=== PATIENT | female | born 1995 | race Caucasian/White ===

== ENCOUNTER 2020-11-26 14:36 | Emergency (ER) | payer SELFPAY ==
--- NOTE | ~2020-11-26 | XR_ITS ---
EXAMINATION: XR chest 1V portable DATE: 11/26/2020 16:29 INDICATION: Drug overdose. Seizure like activity. TECHNIQUE: A single frontal view of the chest was obtained. COMPARISON: None. FINDINGS: The chest demonstrates clear lungs without pneumonia, pleural effusion, or pneumothorax. Th e heart size is normal. IMPRESSION: 1. No acute cardiopulmonary disease. Reviewed, dictated and finalized at location B.
[2020-11-26 15:00] VITALS: BP 91/61; PULSE 79; RESP 13; O2SAT 100
[2020-11-26 15:01] VITALS: BP 108/56; PULSE 60; RESP 15; O2SAT 98
--- NOTE | 2020-11-26 15:03 | ED.GENADULT ---
HPI - General Adult General Chief complaint: Unspecified Stated complaint: SEIZURE VS DRUG USE Time Seen by Provider: 11/26/20 15:03 Source: patient Mode of arrival: ambulatory Limitations: no limitations History of Present Illness HPI narrative: Patient is a 25-year-old female who presents via EMS for evaluation of altered mental status. Patient presented to her first day of work at a [employer] and was found to be confused and agitated, thus staff at the hotel called EMS who transported to our facility for evaluation. Patient states she is a previous fentanyl user who has been sober 7 months, but used a bar of Xanax 2 days ago which she is worried may have been laced with fentanyl. Patient states that she has had some jaw contraction on the right side with mild jaw pain since that time. She is currently alert and oriented to person and place. She denies any headache, chest pain or other symptoms. Patient is acutely intoxicated. She denies homicidal or suicidal ideation. Related Data Home Medications Medication Instructions Recorded Confirmed No Home Medications 11/26/20 11/26/20 Allergies Allergy/AdvReac Type Severity Reaction Status Date / Time No Known Allergies Allergy Verified 11/26/20 14:58 Review of Systems Review of Systems: Narrative: CONSTITUTIONAL: Denies fever CARDIOVASCULAR: Denies chest pain RESPIRATORY: Denies cough or dyspnea. GASTROINTESTINAL: Denies abdominal pain SKIN: Denies rash MUSCULOSKELETAL: Denies back pain NEUROLOGIC: Denies headache [facility] Social History Social History (Updated 11/26/20 @ 15:49 by Mary Delgadillo MD) Smoking status: Current every day smoker Tobacco type: e-cigarettes/vaping Alcohol intake: never Substance use: current Substance use type: former substance user, marijuana and sedatives Gender identity (if verbalized by the patient): Female Exam Narrative: Exam Narrative: GENERAL: Awake, alert, conversant, intoxicated HEAD: Normocephalic, atraumatic. EYES: PERRLA and EOMI. ENT: Nares clear, no rhinorrhea or epistaxis. Mucous membranes dry. No trismus. NECK: Supple. CHEST: No respiratory distress, breathing even and non labored HEART: Regular rate, sinus rhythm ABDOMEN:Non distended, non tender EXTREMITIES: Normal range of motion. No edema. SKIN: Warm, dry, no rash. NEURO:No focal deficits. Alert and oriented x3 Course Vital Signs Vital signs: Vital Signs Pulse Rate 79 11/26/20 15:00 Respiratory Rate 13 11/26/20 15:00 Blood Pressure 91/61 L 11/26/20 15:00 Pulse Oximetry 100 11/26/20 15:00 Pulse Rate 69 11/26/20 18:57 Respiratory Rate 19 11/26/20 18:57 Blood Pressure 104/66 11/26/20 18:57 Pulse Oximetry 100 11/26/20 18:57 Medical Decision Making MDM Narrative Medical decision making narrative: Patient presented for evaluation of altered mental status. At the time of assessment, patient is awake and alert to person, place and to time. She can identify she is in the hospital. She reports being acutely intoxicated with Xanax. She also reports marijuana use. She denies alcohol use. Denies complaints of any pain. Patient is somewhat dehydrated appearing. IV access obtained and labs are drawn. Laboratory results are reassuring. No leukocytosis. No lactic acidosis. No evidence of pneumonia. Possible urinary tract infection although patient lacks symptoms of this currently. Patient was given IV fluids and felt much improved. Patient initially was hypotensive but this did improve with fluids. Her mentation proved. She was ambulatory with a narrow base, steady gait. No evidence of head trauma. Likely symptoms are secondary to polysubstance abuse, benzodiazepine use. No evidence of sepsis or septic shock. No other acute pathology found tonight. Patient then awakened and eloped from emergency department. I was not able to write for her antibiotics prior to her eloping. Differential Diagnosis Different
--- NOTE | 2020-11-26 15:43 | ECG_ITS ---
Measurements Intervals [place] Rate: 51 P: 45 MO: 110 QRS: 38 QRSD: 98 T: 48 QT: 458 QTc: 425 Interpretive Statements SINUS BRADYCARDIA WITH SHORT MO INTERVAL LOW QRS VOLTAGE IN PRECORDIAL LEADS BASELINE ARTIFACT- I, II, V1-V2 BORDERLINE ECG Electronically Signed On 11-26-2020 16:21:19 CDT by Jason Gutierrez D.O.
[2020-11-26 15:55] VITALS: PULSE 67
[2020-11-26 16:11] LABS: Basophils Percent Auto 0.4 % (0.2-1.2); Hemoglobin 13.8 g/dL (12.0-15.0); Immature Granulocyte Absolute 0.06 K/mm3 (0.00-0.031); Immature Granulocyte Percent A 0.8 % (0-0.5); Lymphocytes Absolute Auto 1.89 K/mm3 (0.9-3.2); Lymphocytes Percent Auto 24.9 % (18.3-44.2); Mean Corpuscular HGB Conc 33.7 g/dl (32-36); Mean Corpuscular Hemoglobin 29.2 pg (26-34); Mean Corpuscular Volume 86.7 fl (80-100); Mean Platelet Volume 9.1 fl (7.4-10.4); Monocytes Absolute Auto 0.4 K/mm3 (0.1-0.6); Monocytes Percent Auto 4.6 % (2.6-8.5); Neutrophils Absolute Auto 5.3 K/mm3 (1.3-6.7); Neutrophils Percent Auto 69.3 % (45.5-73.1); Platelet Count Result 278 k/mm3 (150-375); Red Blood Count 4.73 M/mm3 (4.2-5.4); Red Cell Distribution Width 14.3 % (11.5-14.5); White Blood Count 7.6 K/mm3 (4.5-10.0)
[2020-11-26] MEDS: SODIUM CHLORIDE 0.9% IV 1,000 ML 999 ML IV CONT (16:18)
[2020-11-26 16:20] LABS: Ethanol < 10 mg/dL (<10)
[2020-11-26 16:21] LABS: Alanine Aminotransferase 91 U/L (4-35); Albumin Level 4.9 g/dL (3.5-5.1); Alkaline Phosphatase 61 U/L (38-126); Anion Gap 11 mmol/L (8-16); Aspartate Amino Transferase 67 U/L (14-36); Bilirubin,Total 0.5 mg/dL (0.2-1.3); Blood Urea Nitrogen 10 mg/dL (7-17); Calcium 9.9 mg/dL (8.4-10.2); Carbon Dioxide 24 mmol/L (22-30); Chloride 107 mmol/L (98-107); Estimated CRCL calculation 85 ml/min; Estimated Glomerular Filt Rate > 60; Glucose 94 mg/dL (65-105); Potassium 3.6 mmol/L (3.4-5.0); Sodium 142 mmol/L (137-145)
[2020-11-26 16:22] LABS: Glucose Point of Care 92 mg/dl (65-105)
[2020-11-26 16:22] LABS: Lactic Acid Reflex 1.6 mmol/L (0.7-2.1)
[2020-11-26 16:29] LABS: Add Urine Microscopic? YES; Appearance Urine Cloudy (Clear); Bacteria Urine Trace /hpf; Bilirubin Urine Negative (Negative); Blood Urine 3+ (Negative); Color Urine Amber (Yellow); Glucose Urine UA Negative (Negative); Ketones Urine Trace mg/dL (Negative); Leukocyte Esterase Ur 1+ LEU/UL (Negative); Mucus Urine Moderate /lpf; Nitrate Urine Negative (Negative); Protein Urine 3+ mg/dL (Negative); Specific Grav Ur 1.026 (1.001-1.035); Squamous Epithelial Cell Urine Many /hpf (Few); WBC Urine 21-30 /hpf
[2020-11-26 16:43] VITALS: BP 100/63; PULSE 60; RESP 18; O2SAT 98
[2020-11-26 16:51] LABS: Barbiturate Screen Urine Negative (Negative); Benzodiazepines Screen Urine Positive (Negative)
[2020-11-26 16:56] LABS: Cannabinoid Screen Urine Positive (Negative); Cocaine Screen Urine Negative (Negative); Methadone Screen Urine Negative (Negative); Phencyclidine Screen Urine Negative (Negative)
[2020-11-26 17:17] LABS: Amphetamine Screen Urine Positive (Negative)
[2020-11-26] MEDS: THIAMINE HCL INJ 100 MG, FOLIC ACID INJ 1 MG, MULTIVITAMINS-12 INJ VIAL 1 5 ML, MULTIVI... IV CONT (17:40)
[2020-11-26 18:57] VITALS: BP 104/66; PULSE 69; RESP 19; O2SAT 100
[2020-11-26 19:13] LABS: Opiate Screen Urine Negative (Negative)
--- NOTE | 2020-11-26 20:20 | PC.NURSE ---
pct notified charge that pt is not in room and banana bag was running with iv attached to end of tubing.
== END 2020-11-26 21:47 | disposition left against medical advice (07) ==
PROVIDERS: Emergency Provider Emergency Medicine
DX: F19.10 Other psychoactive substance abuse, uncomplicated (principal); F17.290 Nicotine dependence, other tobacco product, uncomplicated; R00.1 Bradycardia, unspecified
CPT/HCPCS: 36415; 71045; 80053; 80307; 81001; 81025; 82948; 83605; 85025; 87040; 87077; 87086; 87088; 87186; 93005; 96361; 96365; 96366; 99284; J3411; J3475; J7030; J7121

== ENCOUNTER 2020-12-25 14:08 | Emergency (ER) | payer OTHER, SELFPAY ==
--- NOTE | ~2020-12-25 | XR_ITS ---
EXAMINATION: XR chest 2V DATE: 12/25/2020 14:59 INDICATION: Acute chest pain. TECHNIQUE: Frontal and lateral views of the chest were obtained. COMPARISON: Chest single view 11/26/2020 FINDINGS: The chest demonstrates clear lungs without pneumonia, pleural effusion, or pneumothorax. Th e heart size is normal. IMPRESSION: 1. No acute cardiopulmonary disease. Reviewed, dictated and finalized at location A.
[2020-12-25 14:32] VITALS: BP 109/66; PULSE 73; RESP 17; TEMP 35.4; O2SAT 100
--- NOTE | 2020-12-25 14:36 | ECG_ITS ---
Measurements Intervals [place] Rate: 64 P: 56 SD: 108 QRS: 61 QRSD: 86 T: 56 QT: 435 QTc: 451 Interpretive Statements SINUS RHYTHM WITH SHORT SD INTERVAL BORDERLINE ECG Electronically Signed On 12-25-2020 14:55:31 CDT by Jason Gutierrez D.O.
--- NOTE | 2020-12-25 17:23 | ED.GENADULT ---
HPI - General Adult General Chief complaint: Seizure <Ariella De La Cruz MD - Last Filed: 12/25/20 19:35> Stated complaint: seizure <Ariella De La Cruz MD - Last Filed: 12/25/20 19:35> Time Seen by Provider: 12/25/20 17:15 <Ariella De La Cruz MD - Last Filed: 12/25/20 19:35> Source: patient <Ariella De La Cruz MD - Last Filed: 12/25/20 19:35> Limitations: no limitations <Ariella De La Cruz MD - Last Filed: 12/25/20 19:35> History of Present Illness HPI narrative: Patient is 25 years old white female presented to the ED with feeling lightheadedness, dizziness and hot feeling and restlessness. Patient been outdoors for 2 hours, outdoor temperature is 97 Fahrenheit, very humid. Patient denies any headache, chest pain, shortness of breath, abdominal pain or back pain. Patient denies drug use or abuse. <Ariella De La Cruz MD - Last Filed: 12/25/20 19:35> Related Data Allergies/adverse reactions: Allergies Allergy/AdvReac Type Severity Reaction Status Date / Time No Known Allergies Allergy Verified 12/25/20 18:50 <Ariella De La Cruz MD - Last Filed: 12/25/20 19:35> Review of Systems Review of Systems: Narrative: CONSTITUTIONAL: Denies fever, chills, or sweats. EYES: Denies visual changes, redness, or discharge. ENT: Denies rhinorrhea, congestion, sore throat, or otalgia. CARDIOVASCULAR: Denies chest pain, palpitations, or edema. RESPIRATORY: Denies cough or dyspnea. GASTROINTESTINAL: Denies abdominal pain, nausea, vomiting, or diarrhea. GENITOURINARY: Denies dysuria or hematuria. SKIN: Denies rash or itching. MUSCULOSKELETAL: Denies back pain, joint pain, or myalgia. NEUROLOGIC: Denies headache, numbness, or weakness. PSYCHIATRIC: Denies anxiety or depression. <Ariella De La Cruz MD - Last Filed: 12/25/20 19:35> Exam Narrative: Exam Narrative: General appearance: Well-developed, well-nourished, restless Skin: Normal color, diaphoretic, warm skin Head: Normocephalic, nontraumatic Eyes: Clear conjunctiva ENT: Oropharynx normal, ears normal, nose normal Neck: Supple, nontender Chest and respiratory: Airway patent, no respiratory distress, no accessory muscle use Heart: Regular rate/rhythm Abdomen: Soft, nontender, no organomegaly, quiet bowel sounds Vascular: Normal peripheral pulses, normal capillary refill. Musculoskeletal: Normal range of motion, nontender back Neurologic: Alert and oriented ?3, RED HAT OPEN STACK ADMINISTRATOR is normal as tested, no gross motor deficit <Ariella De La Cruz MD - Last Filed: 12/25/20 19:35> Course Course Emergency Course: Improving <Ariella De La Cruz MD - Last Filed: 12/25/20 19:35> After I received sign-out she eloped with IV in place. PD notified. Meth on drug screen did not result. Likely too high. <Sher Jimenez MD - Last Filed: 12/25/20 21:53> Reevaluation(s) Reevaluation #1: Hard to get IV access, another nurse trying to get 1, Patient care turned over to Dr. Alonzo at shift change, IV fluid, UA and urine drug screen, disposition. Patient been resting quietly in the emergency room without any issues or problems. <Ariella De La Cruz MD - Last Filed: 12/25/20 19:35> Date: 12/25/20 <Ariella De La Cruz MD - Last Filed: 12/25/20 19:35> Time: 19:34 <Ariella De La Cruz MD - Last Filed: 12/25/20 19:35> Vital Signs Vital signs: Vital Signs Temperature 35.4 C L 12/25/20 14:32 Pulse Rate 73 12/25/20 14:32 Respiratory Rate 17 12/25/20 14:32 Blood Pressure 109/66 12/25/20 14:32 Pulse Oximetry 100 12/25/20 14:32 Temperature 35.4 C L 12/25/20 14:32 Pulse Rate 69 12/25/20 19:34 Respiratory Rate 15 12/25/20 19:34 Blood Pressure 108/73 12/25/20 19:34 Pulse Oximetry 97
[2020-12-25 17:39] LABS: Basophils Percent Auto 0.4 % (0.2-1.2); Eosinophils Percent Auto 0.1 % (0-4.4); Hematocrit 37.8 % (37.0-47.0); Hemoglobin 12.5 g/dL (12.0-15.0); Immature Granulocyte Absolute 0.03 K/mm3 (0.00-0.031); Immature Granulocyte Percent A 0.4 % (0-0.5); Lymphocytes Absolute Auto 1.56 K/mm3 (0.9-3.2); Lymphocytes Percent Auto 20.6 % (18.3-44.2); Mean Corpuscular HGB Conc 33.1 g/dl (32-36); Mean Corpuscular Hemoglobin 28.1 pg (26-34); Mean Corpuscular Volume 84.9 fl (80-100); Monocytes Absolute Auto 0.3 K/mm3 (0.1-0.6); Neutrophils Absolute Auto 5.7 K/mm3 (1.3-6.7); Neutrophils Percent Auto 74.5 % (45.5-73.1); Platelet Count Result 369 k/mm3 (150-375); Red Blood Count 4.45 M/mm3 (4.2-5.4); Red Cell Distribution Width 12.9 % (11.5-14.5); White Blood Count 7.6 K/mm3 (4.5-10.0)
[2020-12-25 17:49] LABS: Anion Gap 9 mmol/L (8-16); Blood Urea Nitrogen 10 mg/dL (7-17); Calcium 9.6 mg/dL (8.4-10.2); Carbon Dioxide 25 mmol/L (22-30); Chloride 106 mmol/L (98-107); Estimated CRCL calculation 119 ml/min; Estimated Glomerular Filt Rate > 60; Glucose 97 mg/dL (65-105); Potassium 4.1 mmol/L (3.4-5.0); Sodium 140 mmol/L (137-145)
[2020-12-25 18:00] LABS: Troponin I < 0.012 ng/mL (0.000-0.034)
[2020-12-25 18:45] VITALS: BP 108/73; PULSE 73; PULSE 98; RESP 16
[2020-12-25 19:34] VITALS: BP 108/73; PULSE 69; RESP 15; O2SAT 97
[2020-12-25] MEDS: SODIUM CHLORIDE 0.9% IV 1,000 ML 999 ML IV CONT (19:46)
[2020-12-25 20:27] LABS: Add Urine Microscopic? YES; Appearance Urine Cloudy (Clear); Bacteria Urine Trace /hpf; Bilirubin Urine Negative (Negative); Blood Urine 3+ (Negative); Color Urine Yellow (Yellow); Glucose Urine UA Negative (Negative); Ketones Urine Negative (Negative); Leukocyte Esterase Ur Trace LEU/UL (Negative); Mucus Urine Few /lpf; Nitrate Urine Negative (Negative); Protein Urine 2+ mg/dL (Negative); RBC Urine >75 /hpf (0-2); Squamous Epithelial Cell Urine Moderate /hpf (Few)
[2020-12-25 20:38] LABS: Barbiturate Screen Urine Negative (Negative); Benzodiazepines Screen Urine Positive (Negative)
[2020-12-25 20:49] LABS: Cannabinoid Screen Urine Positive (Negative); Cocaine Screen Urine Negative (Negative); Methadone Screen Urine Negative (Negative); Opiate Screen Urine Negative (Negative); Phencyclidine Screen Urine Negative (Negative)
--- NOTE | 2020-12-25 21:54 | PC.NURSE ---
Called [facility] to inform them of pt elopement with IV in place.
--- NOTE | 2020-12-25 21:59 | PC.NURSE ---
Found IV in trash can. Called [place] police and updated them.
--- NOTE | 2020-12-25 21:59 | PC.NURSE ---
Pt IV removed by herself and pt left ED> IV found in trashcan.
== END 2020-12-25 22:00 | disposition left against medical advice (07) ==
PROVIDERS: Emergency Provider Emergency Medicine
DX: T67.5XXA Heat exhaustion, unspecified, initial encounter (principal); R42 Dizziness and giddiness
CPT/HCPCS: 36415; 71046; 80048; 80307; 81001; 81025; 84484; 85025; 93005; 96360; 99284; J7030

== ENCOUNTER 2024-05-30 08:05 | Emergency (ER) | payer OTHER, SELFPAY ==
[2024-05-30 08:10] VITALS: BP 115/91; PULSE 78; RESP 16; O2SAT 99
--- NOTE | 2024-05-30 08:28 | ED.GENADULT ---
HPI - General Adult General Chief complaint: Nausea/Vomiting/Diarrhea Stated complaint: vaginal bleeding pregant Time Seen by Provider: 05/30/24 08:07 History of Present Illness HPI narrative: Patient is a 28-year-old female who is a at 13 weeks in gestation who presents ER with vaginal bleeding and lower abdominal cramping. Began this morning after waking up. She has had intermittent bleeding throughout her . Her OB is Dr. Hills. She reports she blood through her pants 3 times today. No urinary symptoms. No alleviating factors. She is having nausea. Related Data Allergies Allergy/AdvReac Type Severity Reaction Status Date / Time No Known Allergies Allergy Verified 05/30/24 08:15 Review of Systems Review of Systems: All systems reviewed & are unremarkable except as noted in HPI and below Constitutional: Constitutional: Reports no additional constitutional complaints Cardiovascular: Cardiovascular: Reports no additional cardiovascular complaints Respiratory: Respiratory: Reports no additional respiratory complaints Gastrointestinal: Gastrointestinal: Reports abdominal pain, Denies nausea and Denies vomiting Genitourinary: Genitourinary: Reports abnormal vaginal bleeding, Denies nocturia, Denies dysuria, Reports pelvic pain and Denies vaginal discharge PMFSH Past Medical History Medical History (Updated 05/30/24 @ 13:21 by Troy Thomas MD) Polysubstance abuse Surgical History Surgical History (Updated 05/30/24 @ 09:19 by Troy Thomas MD) No pertinent past surgical history Social History Social History Smoking status: Current every day smoker Tobacco type: e-cigarettes/vaping Alcohol intake: never Substance use: current Substance use type: former substance user, marijuana and sedatives Gender identity (if verbalized by the patient): Female Exam Narrative: GENERAL: Well-appearing, well-nourished, and in no acute distress. HEAD: Normocephalic, atraumatic. ENT: Mucous membranes moist. CHEST: Clear to auscultation. No respiratory distress. HEART: Regular rate and rhythm. Normal peripheral pulses. ABDOMEN: Soft, suprapubic discomfort, nondistended. : Retroverted uterus, mild-mod dark blood, no hemorrhage or blood products. EXTREMITIES: Normal range of motion. No edema. SKIN: Warm, dry, no rash. NEURO: Alert and oriented x3. PSYCH: Normal mood and affect. Course Course Emergency Course: 1049: Called to restroom. Patient passed fetus. No movement. Time of 1045. Will contact OB to discuss retained placenta. US unavailable today. 1121: Discussed with OB, they would recommend observation for pain control and delivery of placenta. Patient then delivered placenta in the ER. Patient will be monitored for bleeding. packet performed on fetus and sent to pathology. 1319: Patient is still having cramping but is markedly decreased in only 3/10 at its most intense. Her bleeding is decreased as well. Feels comfortable with discharge home. Will contact OB tomorrow to schedule follow-up ultrasound early in the week. Vital Signs Vital signs: Vital Signs Pulse Rate 78 05/30/24 08:10 Respiratory Rate 16 05/30/24 08:10 Blood Pressure 115/91 H 05/30/24 08:10 Pulse Oximetry 99 05/30/24 08:10 Oxygen Delivery Room Air 05/30/24 08:10 Temperature 96.8 F L 05/30/24 08:45 Pulse Rate 62 05/30/24 11:15 Respiratory Rate 16 05/30/24 11:15 Blood Pressure 108/77 05/30/24 11:15 Pulse Oximetry 100 05/30/24 11:15 Oxygen Delivery Room Air 05/30/24 08:10 Medical Decision Making Vital Signs Vital Signs: Vital Signs Pulse Rate 78 05/30/24 08:10 Respiratory Rate 16 05/30/24 08:10 Blood Pressure 115/91 H 05/30/24 08:10 Pulse Oximetry 99 05/30/24 08:10 Oxygen Delivery Room Air 05/30/24 08:10 Temperature 96.8 F L 05/30/24 08:45 Pulse Rate 62 05/30/24 11:15 Respiratory Rate 16 05/30/24 11:15 Blood Pressure 108/77 05/30/24 11:15 Pulse Oximetry 100 05/30/24 11:15 Oxygen Delivery Room Air 05/30/24 08:10 Lab Data 05/30/24 09:11 05/30/24 09:11 Labs: Lab Results 05/30/24 Range/Units 09:11 WBC 16.9 H (4.5-10.0) K/mm3 RBC 4.35 (4.2-5.4) M/mm3 Hgb 13.4 (12.0-15.0) g/dL Hct 38.2 (37.0-47.0) % MCV 87.8 (80-100) fl MCH 30.8 (26-34) pg MCHC 35.1 (32-36) g/dl RDW 13.2 (11.5-14.5) % Plt Count 297 (150-375) k/mm3 MPV 9.3 (7.4-10.4) fl Immature Gran % (Auto) 0.5 (0-0.5) % Neut % (Auto) 84.7 H (45.5-73.1) % Lymph % (Auto) 10.5 L (18.3-44.2) % [place] % (Auto) 3.8 (2.6-8.5) % Eos % (Auto) 0.3 (0-4.4) % Baso % (Auto) 0.2 (0.2-1.2) % Lymph # (Auto) 1.78 (0.9-3.2) K/mm3 [place] # (Auto) 0.7 H (0.1-0.6) K/mm3 Eos # (Auto) 0.1 (0-0.3) K/mm3 Baso # (Auto) 0.0 (0.0-0.1) K/mm3 Abs Immat Gran (auto) 0.09 H (0.00-0.031) K/mm3 Absolute Neuts (auto) 14.3 H (1.3-6.7) K/mm3 Absolute Nucleated RBC 0.000 (0.0-0.012) K/mm3 Nucleated RBC % 0.0 (0.0-0.2) % PT 14.7 (11.1-14.7) Seconds INR 1.1 APTT 28.5 (22.3-36.8) Seconds Sodium 137 (137-145) mmol/L Potassium 3.7 (3.4-5.0) mmol/L Chloride 106 (98-107) mmol/L Carbon Dioxide 18 L (22-30) mmol/L Anion Gap 13 H (4-12) mmol/L BUN 10 (7-17) mg/dL Creatinine 0.60 L (0.7-1.0) mg/dL Estim Creat Clear Calc 135 ml/min Estimated GFR > 60 (59 - ) Glucose 134 H (65-110) mg/dL Calcium 9.5 (8.4-10.2) mg/dL Total Bilirubin 0.6 (0.2-1.3) mg/dL AST 40 H (14-36) U/L ALT 60 H (6-35) U/L Alkaline Phosphatase 68 (38-126) U/L Total Protein 9.0 H (6.3-8.2) g/dL Albumin 4.6 (3.5-5.1) g/dL Beta HCG, Quant 71526.00 mIU/ML Blood Type A Positive Antibody Screen Negative Screen TNP Doses of RhIg Required 0 Discharge Plan Discharge Clinical Impression: Miscarriage at 8 to 28 weeks gestation Patient Disposition: Home, Self-Care Condition: Stable Instructions: Miscarriage (ED) Additional Instructions: Return ER if you have worsening abdominal pain, you lose consciousness, you have increased vaginal bleeding, or you have additional concerns. Follow-up with your OB. Prescriptions: New naproxen 375 mg tablet 375 mg PO BID Qty: 14 0RF hydrocodone-acetaminophen 5-325 mg tablet 1 tablet PO Q6H PRN (Reason: pain) Qty: 10 0RF ondansetron 4 mg tablet,disintegrating 4 mg PO Q6H PRN (Reason: nausea and vomiting) Qty: 10 0RF No Action nitrofurantoin monohyd/m-cryst [Macrobid] 100 mg capsule 100 mg PO Q12H 5 Days Qty: 10 0RF Rx Instructions: must administer with a meal/food Follow-up/Referrals: Silvio Hills MD [Physician] - 3 Days UNKNOWN,DOCTOR [Primary Care Provider] -
--- NOTE | 2024-05-30 08:40 | PC.NURSE ---
This RN attempted peripheral IV x2 with no success. Vanita RN to bedside to attempt IV access.
[2024-05-30 08:45] VITALS: TEMP 36
--- NOTE | 2024-05-30 08:45 | PC.NURSE ---
KAYCEE Waldron also unsuccessful at peripheral access. Vascular access to bedside for line and labs.
[2024-05-30 09:12] VITALS: BP 125/70; PULSE 49; RESP 16; O2SAT 100
[2024-05-30] MEDS: MORPHINE SULFATE (*CRX) 4 MG/ML INJ IV PUSH ×2 (09:21→11:39)
[2024-05-30] MEDS: ONDANSETRON INJ 4 MG/2 ML VIAL IV PUSH ×2 (09:21→11:38)
--- NOTE | 2024-05-30 09:21 | ECG_ITS ---
Test Date: 2024-05-30 09:31:23 Measurements Intervals [place] Rate: 49 P: 53 LA: 139 QRS: 25 QRSD: 103 T: 48 QT: 477 QTc: 432 Interpretive Statements SINUS BRADYCARDIA BASELINE WANDER- II, III, AVR, AVL, AVF, V1-V2 ABNORMAL ECG No previous ECG available for comparison Electronically Signed On 05-30-2024 11:50:53 TUMBLER MACHINE OPERATOR HELPER by Jason Gutierrez D.O.
[2024-05-30 09:25] LABS: Basophils Percent Auto 0.2 % (0.2-1.2); Eosinophils Absolute Auto 0.1 K/mm3 (0-0.3); Eosinophils Percent Auto 0.3 % (0-4.4); Hematocrit 38.2 % (37.0-47.0); Hemoglobin 13.4 g/dL (12.0-15.0); Immature Granulocyte Absolute 0.09 K/mm3 (0.00-0.031); Immature Granulocyte Percent A 0.5 % (0-0.5); Lymphocytes Absolute Auto 1.78 K/mm3 (0.9-3.2); Lymphocytes Percent Auto 10.5 % (18.3-44.2); Mean Corpuscular HGB Conc 35.1 g/dl (32-36); Mean Corpuscular Hemoglobin 30.8 pg (26-34); Mean Corpuscular Volume 87.8 fl (80-100); Mean Platelet Volume 9.3 fl (7.4-10.4); Monocytes Absolute Auto 0.7 K/mm3 (0.1-0.6); Monocytes Percent Auto 3.8 % (2.6-8.5); Neutrophils Absolute Auto 14.3 K/mm3 (1.3-6.7); Neutrophils Percent Auto 84.7 % (45.5-73.1); Platelet Count Result 297 k/mm3 (150-375); Red Blood Count 4.35 M/mm3 (4.2-5.4); Red Cell Distribution Width 13.2 % (11.5-14.5); White Blood Count 16.9 K/mm3 (4.5-10.0)
--- NOTE | 2024-05-30 09:35 | PC.NURSE ---
Sinus bradycardia on ag service manager. EKG protocoled and given to MD Thomas.
[2024-05-30 09:38] LABS: INR 1.1; Prothrombin Time 14.7 Seconds (11.1-14.7)
[2024-05-30 09:39] LABS: Partial Thromboplastin Time 28.5 Seconds (22.3-36.8)
--- NOTE | 2024-05-30 09:40 | PC.NURSE ---
MD Thomas at bedside performing pelvic exam and abdominal ultrasound with this RN present.
[2024-05-30 10:10] LABS: Alanine Aminotransferase 60 U/L (6-35); Albumin Level 4.6 g/dL (3.5-5.1); Alkaline Phosphatase 68 U/L (38-126); Anion Gap 13 mmol/L (4-12); Aspartate Amino Transferase 40 U/L (14-36); Bilirubin,Total 0.6 mg/dL (0.2-1.3); Blood Urea Nitrogen 10 mg/dL (7-17); Calcium 9.5 mg/dL (8.4-10.2); Carbon Dioxide 18 mmol/L (22-30); Chloride 106 mmol/L (98-107); Estimated CRCL calculation 135 ml/min; Estimated Glomerular Filt Rate > 60; Glucose 134 mg/dL (65-110); Potassium 3.7 mmol/L (3.4-5.0); Sodium 137 mmol/L (137-145)
--- NOTE | 2024-05-30 10:40 | PC.NURSE ---
Pt in bathroom and alerted RN that there's tissue coming from my vagina. Fetus visible. MD Thomas present. Fetus safely delivered, bleeding controlled. Pt. significant other at bedside and notified by MD Thomas that the pt. had a miscarriage.
--- NOTE | 2024-05-30 10:45 | PC.NURSE ---
Mother notified by MD Thomas of demise at this time.
--- NOTE | 2024-05-30 11:00 | PC.NURSE ---
Pt. and significant other provided with blue folder.
[2024-05-30 11:15] VITALS: BP 108/77; PULSE 62; RESP 16; O2SAT 100
--- NOTE | 2024-05-30 11:20 | PC.NURSE ---
Pt passed placenta. Md Thomas notified to assess. Placenta appears intact. Specimen collected for pathology.
--- NOTE | 2024-05-30 11:34 | PC.NURSE ---
Spoke to [facility] Coroner Pamella- made aware of Demise < 20 weeks time of passing 1045.
[2024-05-30] MEDS: KETOROLAC 30 MG/ML VIAL (*BKC) IV PUSH (11:38)
[2024-05-30] MEDS: SODIUM CHLORIDE 0.9% IV 1,000 ML 999 ML IV CONT (11:38)
--- NOTE | 2024-05-30 12:00 | PC.NURSE ---
Placenta and fetus walked down to lab by this RN.
--- NOTE | 2024-05-30 13:20 | PC.NURSE ---
Pt to bathroom- ambulated appropriately. Bleeding is controlled and is noted to be bright red and roughly the amount of a typical period. patient complains of mild cramping but nothing intolerable
[2024-05-30 13:21] VITALS: BP 108/64; PULSE 61; RESP 18; TEMP 36.8; O2SAT 100
== END 2024-05-30 13:37 | disposition home or self-care (01) ==
PROVIDERS: Emergency Provider Emergency Medicine
DX: O03.9 Complete or unspecified spontaneous abortion without complication (principal); F17.290 Nicotine dependence, other tobacco product, uncomplicated
CPT/HCPCS: 36415; 80053; 84702; 85025; 85461; 85610; 85730; 86850; 86900; 86901; 88305; 93005; 96361; 96374; 96375; 96376; 99284; J1885; J2270; J2405; J7030